=== PATIENT | male | born 1955 | race Hispanic/Latino ===

== ENCOUNTER 2018-05-04 19:47 | Inpatient (IN) | payer SELFPAY ==
[2018-05-04] MEDS ORDERED: LASIX ONE (19:54)
[2018-05-04] MEDS ORDERED: LASIX IV ONE (19:55)
[2018-05-04] MEDS ORDERED: NITRO-BID 2% TP ONE (20:01)
--- NOTE | 2018-05-04 20:10 | Emergency Department Report ---
HPI - General Chief Complaint: Dyspnea/Respdistress Time Seen by Provider: 05/04/18 20:00 - [facility] HPI: The patient is a 62-year-old male who presents to the ED complaining of presents to the ED with chest pain chest pain, that began this morning while at rest. Symptoms have been constant since onset and he rates them as severe in severity. Patient reports the symptoms are located right and left chest and describes the quality as pressure. Per patient, he has had associated shortness of breath but denies any fever, chills or night sweats. Symptoms are improved with nothing and exacerbated by movement, activity. Patient reports history of CAD history of similar symptoms. Pertinent medical history includes hypertension, CAD. Patient was hypoxic in EMS, he received DuoNeb treatments, morphine 4 mg IV, Solu-Medrol, and mag per EMS. Upon arrival in the ED patient was promptly placed on BiPAP given Lasix 100 mg IV, nitroglycerin 1 inch paste to the chest. His symptoms improved, he does not see a primary care doctor. ED Past Medical Hx - Past Medical History Hx Hypertension: Yes Hx Heart Attack/AMI: Yes - Surgical History Hx Coronary Stent: Yes - Family History Family history: CAD/MS - Social History Smoking Status: Current Every Day Smoker Substance Use Type: None ED Review of Systems ROS: Stated complaint: CODE STEMI Other details as noted in HPI Comment: All other systems reviewed and negative Cardiovascular: chest pain Endocrine: denies: increased hunger Physical Exam - Physical Exam General: - General Limitations: No Limitations General appearance: alert, in severe distress - Head Head exam: Present: atraumatic, normocephalic - Eye Eye exam: Present: normal appearance - ENT ENT exam: Present: mucous membranes moist - Neck Neck exam: Present: normal inspection - Respiratory Respiratory exam: Present: normal lung sounds bilaterally. Absent: respiratory distress - Cardiovascular Cardiovascular Exam: Present: regular rate, normal rhythm. Absent: systolic murmur, diastolic murmur, rubs, gallop - GI/Abdominal GI/Abdominal exam: Present: soft, normal bowel sounds - Extremities Exam Extremities exam: Present: normal inspection - Back Exam Back exam: Present: normal inspection - Neurological Exam Neurological exam: Present: alert, oriented X3 - Psychiatric Psychiatric exam: Present: normal affect, normal mood - Skin Skin exam: Present: warm, dry, intact, normal color. Absent: rash ED Course - Reevaluation(s) Reevaluation #1: 05/05/18 00:58 Improve with Lasix, oxygen, aspirin and nitroglycerin. ED Medical Decision Making - Lab Data Result diagrams: 05/04/18 20:20 05/04/18 20:20 Critical care attestation.: If time is entered above; I have spent that time in minutes in the direct care of this critically ill patient, excluding procedure time. ED Disposition Clinical Impression: Acute exacerbation of CHF (congestive heart failure) Qualifiers: Heart failure type: systolic Qualified Code(s): I50.23 - Acute on chronic systolic (congestive) heart failure Chest pain Qualifiers: Chest pain type: chest pain on breathing Qualified Code(s): R07.1 - Chest pain on breathing Disposition: DC-09 OP ADMIT IP TO THIS HOSP Is pt being admited?: Yes Does the pt Need Aspirin: Yes Condition: Stable Instructions: Chest Pain (ED) Referrals: PRIMARY CARE, [Primary Care Provider] - 3-5 Days
[2018-05-04 20:49] LABS: Basophils # (Auto) 0.1 K/mm3 (0.0-0.1); Basophils % (Auto) 1.1 % (0.0-1.8); Eosinophils # (Auto) 0.1 K/mm3 (0.0-0.4); Eosinophils % (Auto) 0.7 % (0.0-4.3); Hematocrit 51.1 % (35.5-45.6); Hemoglobin 17.7 gm/dl (11.8-15.2); Lymphocytes # (Auto) 1.8 K/mm3 (1.2-5.4); Lymphocytes % (Auto) 14.1 % (13.4-35.0); Mean Corpuscular HGB Conc 35 % (32-34); Mean Corpuscular Volume 99 fl (84-94); Monocytes # (Auto) 1.2 K/mm3 (0.0-0.8); Monocytes % (Auto) 9.8 % (0.0-7.3); Platelet Count 218 K/mm3 (140-440); Red Blood Count 5.19 M/mm3 (3.65-5.03)
[2018-05-04 20:55] LABS: INR 0.95 (0.87-1.13)
[2018-05-04 20:56] LABS: Partial Thromboplastin Time 23.5 Sec. (24.2-36.6)
[2018-05-04 21:06] LABS: Alanine Aminotransferase 49 units/L (7-56); Albumin 4.5 g/dL (3.9-5); BUN/Creatinine Ratio 11; Blood Urea Nitrogen 12 mg/dL (9-20); Calcium 9.3 mg/dL (8.4-10.2); Hemolysis Index 22
--- NOTE | 2018-05-04 21:23 | XRay Report ---
FINAL REPORT EXAM: XR CHEST 1V AP HISTORY: chest pain TECHNIQUE: upright single view chest PRIORS: None. FINDINGS: Cardiac and mediastinal contours are unremarkable. No focal pulmonary infiltrate is identified. No pleural fluid collection seen. Pulmonary vasculature is unremarkable. IMPRESSION: Negative single-view chest
--- NOTE | 2018-05-04 23:48 | Cat Scan Report ---
FINAL REPORT EXAM: CT ANGIO CHEST HISTORY: cp, sob r/o pe TECHNIQUE: CT chest CT angiogram with reconstructions PRIORS: None. FINDINGS: There is no evidence of filling defect within the central pulmonary vasculature to suggest the presen ce of acute pulmonary embolus. No evidence of mediastinal pathologic lymph node enlargement Heart and great vessels are unremarkable. The aorta is normal in caliber. There is some mild pleural parenchymal thickening within the right lower lobe appears slightly conflu ent could reflect an area of acute infiltrate with adjacent effusion there is some atelectasis noted inferior aspect of the right middle lobe No pleural fluid collection seen. No acute pulmonary abnormality noted. Visualized portion of the upper abdomen demonstrates no acute change. IMPRESSION: mild area of opacity and pleural thickening or fluid within the posterior inferior right lower lobe w hich may be acute or chronic No CT evidence of acute pulmonary embolus
[2018-05-05] MEDS ORDERED: ASPIRIN PO ONE (00:59)
[2018-05-05] MEDS ORDERED: MORPHINE IV PRN (01:43)
[2018-05-05] MEDS ORDERED: ZOFRAN IV PRN (01:43)
[2018-05-05] MEDS ORDERED: TYLENOL PO PRN (01:43)
--- NOTE | 2018-05-05 01:48 | History and Physical Report ---
<PHILIPP VAUGHAN - Last Filed: 05/05/18 06:20> History of Present Illness Date of examination: 05/05/18 Date of admission: 05/04/2018 Chief complaint: chest pain, SOB History of present illness: Pt is a 62 year old white male with PMHx of hypertension, CAD, CHF, hyperlipidemia, tobacco and alcohol abuse, who presents to the ER with c/o chest pain since this morning, pt reports a constant pressure-like pain located in the entire chest area side associated with SOB, palpitation, denies diaphoresis, denies any radiation, denies fever, denies chills, denies recent illness. Patient states that he recently saw his senior abap developer who was monitoring his blood pressure meds and his heart rate. Pt reports a h/o irregular heart rate for which he was taking Amioderone, and underwent a cardio convertion for VT/VF. According to EMS, pt was hypoxic, he received nebulizer treatments, IV morphine 4 mg IV, IV Solu-Medrol, and mag before some improvement in his symptoms. Pt was on placed on BiPAP on arrival, he was given IV Lasix, nitroglycerin topical for chest pain with symptoms improvement, he is being admitted for further treatment, cardiology is consulted for evaluation in the morning. Medications and Allergies Allergies Allergy/AdvReac Type Severity Reaction Status Date / Time codeine Allergy Hives Verified 05/04/18 20:00 Active Meds: Active Medications Acetaminophen (Tylenol) 650 mg PO Q4H PRN PRN Reason: Pain MILD(1-3)/Fever >100.5/ROMERO Morphine Sulfate (Morphine) 2 mg IV Q4H PRN PRN Reason: Pain, Moderate (4-6) Ondansetron HCl (Zofran) 4 mg IV Q8H PRN PRN Reason: Nausea And Vomiting Sodium Chloride (Sodium Chloride Flush Syringe 10 Ml) 10 ml IV BID ASHU Sodium Chloride (Sodium Chloride Flush Syringe 10 Ml) 10 ml IV PRN PRN PRN Reason: LINE FLUSH Exam - Constitutional Vitals: Temp Pulse Resp BP Pulse Ox 73 19 150/67 96 05/05/18 00:30 05/05/18 00:30 05/05/18 00:30 05/05/18 00:30 Results - Labs CBC & Chem 7: 05/04/18 20:20 05/04/18 20:20 Labs: Laboratory Last Values WBC 12.4 K/mm3 (4.5-11.0) H 05/04/18 20:20 RBC 5.19 M/mm3 (3.65-5.03) H 05/04/18 20:20 Hgb 17.7 gm/dl (11.8-15.2) H 05/04/18 20:20 Hct 51.1 % (35.5-45.6) H 05/04/18 20:20 MCV 99 fl (84-94) H 05/04/18 20:20 MCH 34 pg (28-32) H 05/04/18 20:20 MCHC 35 % (32-34) H 05/04/18 20:20 RDW 14.0 % (13.2-15.2) 05/04/18 20:20 Plt Count 218 K/mm3 (140-440) 05/04/18 20:20 Lymph % (Auto) 14.1 % (13.4-35.0) 05/04/18 20:20 [place] % (Auto) 9.8 % (0.0-7.3) H 05/04/18 20:20 Eos % (Auto) 0.7 % (0.0-4.3) 05/04/18 20:20 Baso % (Auto) 1.1 % (0.0-1.8) 05/04/18 20:20 Lymph # 1.8 K/mm3 (1.2-5.4) 05/04/18 20:20 [place] # 1.2 K/mm3 (0.0-0.8) H 05/04/18 20:20 Eos # 0.1 K/mm3 (0.0-0.4) 05/04/18 20:20 Baso # 0.1 K/mm3 (0.0-0.1) 05/04/18 20:20 Seg Neutrophils % 74.3 % (40.0-70.0) H 05/04/18 20:20 Seg Neutrophils # 9.2 K/mm3 (1.8-7.7) H 05/04/18 20:20 PT 13.1 Sec. (12.2-14.9) 05/04/18 20:20 INR 0.95 (0.87-1.13) 05/04/18 20:20 APTT 23.5 Sec. (24.2-36.6) L 05/04/18 20:20 POC ABG pH 7.331 (7.35-7.45) L 05/04/18 21:13 POC ABG pCO2 48.5 (35-45) H 05/04/18 21:13 POC ABG pO2 129 (80-105) H 05/04/18 21:13 POC ABG HCO3 25.7 05/04/18 21:13 POC ABG Total CO2 27 05/04/18 21:13 POC ABG O2 Sat 99 05/04/18 21:13 POC ABG Base Excess 0 05/04/18 21:13 FiO2 50 % 05/04/18 21:13 Sodium 133 mmol/L (137-145) L 05/04/18 20:20 Potassium 3.9 mmol/L (3.6-5.0) 05/04/18 20:20 Chloride 93.3 mmol/L (98-107) L 05/04/18 20:20 Carbon Dioxide 24 mmol/L (22-30) 05/04/18 20:20 Anion Gap 20 mmol/L 05/04/18 20:20 BUN 12 mg/dL (9-20) 05/04/18 20:20 Creatinine 1.1 mg/dL (0.8-1.5) 05/04/18 20:20 Estimated GFR > 60 ml/min 05/04/18 20:20 BUN/Creatinine Ratio 11 % 05/04/18 20:20 Glucose 144 mg/dL (75-100) H 05/04/18 20:20 Calcium 9.3 mg/dL (8.4-10.2) 05/04/18 20:20 Total Bilirubin 0.80 mg/dL (0.1-1.2) 05/04/18 20:20 AST 33 units/L (5-40) 05/04/18 20:20 ALT 49 units/L (7-56) 05/04/18 20:20 Alkaline Phosphatase 67 units/L (35-129) 05/04/18 20:20 Troponin T < 0.010 ng/mL (0.00-0.029) 05/04/18 21:47 NT-Pro-B Natriuret Pep 1433 pg/mL (0-900) H 05/04/18 20:20 Total Protein 7.5 g/dL (6.3-8.2) 05/04/18 20:20 Albumin 4.5 g/dL (3.9-5) 05/04/18 20:20 Albumin/Globulin Ratio 1.5 % 05/04/18 20:20 Lipase 16 units/L (13-60) 05/04/18 20:20 Assessment and Plan Assessment and plan: 1. COPD with acute exacerbation 2. Acute dyspnea 3. Chest pain r/o ACS 4. Hypoxia due to COPD/CHF 5. Acute CHF 6. Hypertension 7. Hyperlipidemia, 8. Tobacco use disorder 9. Alcohol use disorder Plan: Admit to medtele for abdominal pain and alcohol abuse Consult cardiology for evaluation Initiate CIWA protocol Continue nebulizer treatment PRN for SOB Tobacco cessation counselling O2 to keep sat > 92% Resume home meds Further plan per hospital course Plan of care was d/w pt, voiced understanding Pt's condition and plan of care discussed with Dr Jackson Advance Directives: Yes VTE prophylaxis?: Mechanical Plan of care discussed with patient/family: Yes <BRANDY JACKSON E - Last Filed: 05/05/18 07:03> History of Present Illness Date of admission: 05/05/18 01:43 Medications and Allergies Active Meds: Active Medications Acetaminophen (Tylenol) 650 mg PO Q4H PRN PRN Reason: Pain MILD(1-3)/Fever >100.5/ROMERO Albuterol (Proventil) 2.5 mg IH Q6HRT ASHU Haloperidol Lactate (Haldol) 5 mg IV Q1H PRN PRN Reason: Unrespon. to mult. doses BZD's Lorazepam (Ativan) 2 mg IV Q1H PRN PRN Reason: CIWA-Ar 8-15 Lorazepam (Ativan) 4 mg PO Q1H PRN PRN Reason: CIWA-Ar 16-25 Methylprednisolone Sodium Succinate (Solu-Medrol) 125 mg IV Q6HR ASHU Morphine Sulfate (Morphine) 2 mg IV Q4H PRN PRN Reason: Pain, Moderate (4-6) Ondansetron HCl (Zofran) 4 mg IV Q8H PRN PRN Reason: Nausea And Vomiting Sodium Chloride (Sodium Chloride Flush Syringe 10 Ml) 10 ml IV BID ASHU Sodium Chloride (Sodium Chloride Flush Syringe 10 Ml) 10 ml IV PRN PRN PRN Reason: LINE FLUSH Exam - Constitutional Vitals: Temp Pulse Resp BP Pulse Ox 97.9 F 73 20 134/78 95 05/05/18 04:00 05/05/18 04:00 05/05/18 04:00 05/05/18 04:00 05/05/18 05:45 Results - Labs CBC & Chem 7: 05/04/18 20:20 05/04/18 20:20 Labs: Laboratory Last Values WBC 12.4 K/mm3 (4.5-11.0) H 05/04/18 20:20 RBC 5.19 M/mm3 (3.65-5.03) H 05/04/18 20:20 Hgb 17.7 gm/dl (11.8-15.2) H 05/04/18 20:20 Hct 51.1 % (35.5-45.6) H 05/04/18 20:20 MCV 99 fl (84-94) H 05/04/18 20:20 MCH 34 pg (28-32) H 05/04/18 20:20 MCHC 35 % (32-34) H 05/04/18 20:20 RDW 14.0 % (13.2-15.2) 05/04/18 20:20 Plt Count 218 K/mm3 (140-440) 05/04/18 20:20 Lymph % (Auto) 14.1 % (13.4-35.0) 05/04/18 20:20 [place] % (Auto) 9.8 % (0.0-7.3) H 05/04/18 20:20 Eos % (Auto) 0.7 % (0.0-4.3) 05/04/18 20:20 Baso % (Auto) 1.1 % (0.0-1.8) 05/04/18 20:20 Lymph # 1.8 K/mm3 (1.2-5.4) 05/04/18 20:20 [place] # 1.2 K/mm3 (0.0-0.8) H 05/04/18 20:20 Eos # 0.1 K/mm3 (0.0-0.4) 05/04/18 20:20 Baso # 0.1 K/mm3 (0.0-0.1) 05/04/18 20:20 Seg Neutrophils % 74.3 % (40.0-70.0) H 05/04/18 20:20 Seg Neutrophils # 9.2 K/mm3 (1.8-7.7) H 05/04/18 20:20 PT 13.1 Sec. (12.2-14.9) 05/04/18 20:20 INR 0.95 (0.87-1.13) 05/04/18 20:20 APTT 23.5 Sec. (24.2-36.6) L 05/04/18 20:20 POC ABG pH 7.331 (7.35-7.45) L 05/04/18 21:13 POC ABG pCO2 48.5 (35-45) H 05/04/18 21:13 POC ABG pO2 129 (80-105) H 05/04/18 21:13 POC ABG HCO3 25.7 05/04/18 21:13 POC ABG Total CO2 27 05/04/18 21:13 POC ABG O2 Sat 99 05/04/18 21:13 POC ABG Base Excess 0 05/04/18 21:13 FiO2 50 % 05/04/18 21:13 Sodium 133 mmol/L (137-145) L 05/04/18 20:20 Potassium 3.9 mmol/L (3.6-5.0) 05/04/18 20:20 Chloride 93.3 mmol/L (98-107) L 05/04/18 20:20 Carbon Dioxide 24 mmol/L (22-30) 05/04/18 20:20 Anion Gap 20 mmol/L 05/04/18 20:20 BUN 12 mg/dL (9-20) 05/04/18 20:20 Creatinine 1.1 mg/dL (0.8-1.5) 05/04/18 20:20 Estimated GFR > 60 ml/min 05/04/18 20:20 BUN/Creatinine Ratio 11 % 05/04/18 20:20 Glucose 144 mg/dL (75-100) H 05/04/18 20:20 Calcium 9.3 mg/dL (8.4-10.2) 05/04/18 20:20 Total Bilirubin 0.80 mg/dL (0.1-1.2) 05/04/18 20:20 AST 33 units/L (5-40) 05/04/18 20:20 ALT 49 units/L (7-56) 05/04/18 20:20 Alkaline Phosphatase 67 units/L (35-129) 05/04/18 20:20 Troponin T < 0.010 ng/mL (0.00-0.029) 05/04/18 21:47 NT-Pro-B Natriuret Pep 1433 pg/mL (0-900) H 05/04/18 20:20 Total Protein 7.5 g/dL (6.3-8.2) 05/04/18 20:20 Albumin 4.5 g/dL (3.9-5) 05/04/18 20:20 Albumin/Globulin Ratio 1.5 % 05/04/18 20:20 Lipase 16 units/L (13-60) 05/04/18 20:20 Assessment and Plan Assessment and plan: She is a 2-year-old man with history of hypertension, hyperlipidemia, CHF, cirrhosis or liver complaints of shortness of breath worse while he was working outdoor yesterday. Also admit to chest pain. Last stress test was in 2017 [place]ota ent seen and examined with nurse practitioner. Agree with plan as discussed above, in addition, check cardiac enzymes and obtain a stress test
[2018-05-05] MEDS ORDERED: NACL 0.45% 1000 ML 1,000 ML IV SCH (06:00)
[2018-05-05] MEDS ORDERED: HALDOL IV PRN (06:16)
[2018-05-05] MEDS ORDERED: ATIVAN PO PRN (06:16)
[2018-05-05] MEDS ORDERED: ATIVAN IV PRN (06:16)
[2018-05-05] MEDS: SOLU-Medrol IV SCH ×3 (08:00→18:24)
[2018-05-05 08:27] LABS: Creatine Kinase MB 4.2 ng/mL (0.0-4.0)
[2018-05-05] MEDS: PROVENTIL IH SCH ×3 (08:59→20:15)
[2018-05-05] MEDS ORDERED: LEXISCAN IV ONE ×2 (10:10→10:11)
--- NOTE | 2018-05-05 10:46 | Consultation ---
History of Present Illness Consult date: 05/05/18 Requesting physician: ROB GONZALEZ Consult reason: shortness of breath History of present illness: This is a 62-year-old smoking history of coronary disease history approximately atrial fibrillation noncompliance hyperlipidemia hypertension who presents to the emergency room with by EMS for shortness of breath patient has chronic shortness of breath but now is having shortness of breath at rest found to be hypoxic and was given steroids and Lasix patient has cardiac cath 2017 showed nonobstructive disease with EF 4045% when elevated left end-diastolic pressure. Patient denies any chest pain nor palpitations patient has history of age fibrillation Y complex tachycardia and EP study was negative for DVT patient is on amiodarone does not take medications regularly is not on anticoagulation secondary to issues Past History Past Medical History: atrial fib (nylon" secondary to compliance), CAD, hypertension, hyperlipidemia Past Surgical History: denies: No surgical history Social history: smoking, alcohol abuse Family history: denies: no significant family history Medications and Allergies Allergies Allergy/AdvReac Type Severity Reaction Status Date / Time codeine Allergy Hives Verified 05/04/18 20:00 Active Meds: Active Medications Acetaminophen (Tylenol) 650 mg PO Q4H PRN PRN Reason: Pain MILD(1-3)/Fever >100.5/ROMERO Albuterol (Proventil) 2.5 mg IH Q6HRT ASHU Last Admin: 05/05/18 08:59 Dose: 2.5 mg Documented by: Amiodarone HCl (Cordarone) 200 mg PO QDAY ASHU Haloperidol Lactate (Haldol) 5 mg IV Q1H PRN PRN Reason: Unrespon. to mult. doses BZD's Hydralazine HCl (Apresoline) 50 mg PO Q8HR ASHU Isosorbide Mononitrate (Imdur) 30 mg PO QDAY ASHU Lorazepam (Ativan) 2 mg IV Q1H PRN PRN Reason: CIWA-Ar 8-15 Lorazepam (Ativan) 4 mg PO Q1H PRN PRN Reason: CIWA-Ar 16-25 Methylprednisolone Sodium Succinate (Solu-Medrol) 125 mg IV Q6HR [facility] Morphine Sulfate (Morphine) 2 mg IV Q4H PRN PRN Reason: Pain, Moderate (4-6) Ondansetron HCl (Zofran) 4 mg IV Q8H PRN PRN Reason: Nausea And Vomiting Sodium Chloride (Sodium Chloride Flush Syringe 10 Ml) 10 ml IV BID ASHU Sodium Chloride (Sodium Chloride Flush Syringe 10 Ml) 10 ml IV PRN PRN PRN Reason: LINE FLUSH Review of Systems All systems: negative (as per hpi) Physical Examination Vital Signs Pulse Ox 89 05/04/18 19:57 General appearance: no acute distress, well-nourished HEENT: Positive: PERRL, Mucus Membranes Moist Neck: Positive: neck supple, trachea midline Cardiac: Positive: Reg Rate and Rhythm, S1/S2. Negative: Audible Murmur Lungs: Positive: clear to auscultation, Decreased Breath Sounds Neuro: Positive: Grossly Intact Abdomen: Positive: Soft, Active Bowel Sounds. Negative: Tender, Distended Male genitourinary: Positive: normal Skin: Positive: Clear Incision: Cardiac Cath Site Musculoskeletal: No Pain, Normal Range of Motion Extremities: Present: normal. Absent: edema Results 05/04/18 20:20 05/04/18 20:20 Cardiac Enzymes 05/04/18 05/05/18 Range/Units 20:20 07:49 AST 33 (5-40) units/L CK-MB (CK-2) 4.2 H (0.0-4.0) ng/mL Coagulation 05/04/18 Range/Units 20:20 PT 13.1 (12.2-14.9) Sec. INR 0.95 (0.87-1.13) APTT 23.5 L (24.2-36.6) Sec. CBC 05/04/18 Range/Units 20:20 WBC 12.4 H (4.5-11.0) K/mm3 RBC 5.19 H (3.65-5.03) M/mm3 Hgb 17.7 H (11.8-15.2) gm/dl Hct 51.1 H (35.5-45.6) % Plt Count 218 (140-440) K/mm3 Lymph # 1.8 (1.2-5.4) K/mm3 [place] # 1.2 H (0.0-0.8) K/mm3 Eos # 0.1 (0.0-0.4) K/mm3 Baso # 0.1 (0.0-0.1) K/mm3 Comprehensive Metabolic Panel 05/04/18 Range/Units 20:20 Sodium 133 L (137-145) mmol/L Potassium 3.9 (3.6-5.0) mmol/L Chloride 93.3 L (98-107) mmol/L Carbon Dioxide 24 (22-30) mmol/L BUN 12 (9-20) mg/dL Creatinine 1.1 (0.8-1.5) mg/dL Glucose 144 H (75-100) mg/dL Calcium 9.3 (8.4-10.2) mg/dL AST 33 (5-40) units/L ALT 49 (7-56) units/L Alkaline Phosphatase 67 (35-129) units/L Total Protein 7.5 (6.3-8.2) g/dL Albumin 4.5 (3.9-5) g/dL - Imaging and Cardiology Echo: report reviewed (10/2016 EF 40-45%) Cardiac cath: report reviewed (2016 [id number] nonobstructive: EF 40-45% with elevated leftblood pressure) EKG interpretations - Telemetry EKG Rhythm: Sinus Bradycardia (left bundle-branch block) Assessment and Plan Acute on chronic respiratory failure Acute on chronic diastolic and systolic heart failure Noncompliant Coronary disease Hypertension a fibrillation proximal Hyperlipidemia Recommend patient cannot take NAZARIO inhibitor secondary to cough and not on beta ashlee secondary bradycardia continue amiodarone aspirin and statin Y hydralazine and Imdur for BP control and follow-up repeat echocardiogram and stress test
[2018-05-05] MEDS ORDERED: SOLU-Medrol IV SCH ×2 (12:00→14:00)
--- NOTE | 2018-05-05 13:44 | Treadmill Report ---
NUCLEAR STUDY REASON FOR STUDY: Shortness of breath. IMAGING PROTOCOL: The patient received 10 mCi of Technetium 99m Tetrofosmin for resting image and 28 mCi of Technetium 99m Tetrofosmin for stress imaging. The imaging for the whole procedure was completed 30-90 minutes following the initial injection of Technetium 99m Tetrofosmin. The SPECT imaging in the 180 degree arc was performed in the right anterior oblique projection. Computerized reconstruction of the images was performed for analysis. IMAGING RESULTS: Cavity is mildly dilated stress and rest. Normal distribution of radionuclide in the anterior, inferior, septal, and apical regions. Gated SPECT, EF 49% with mild global hypokinesis. The patient infused Lexiscan with no EKG changes. SUMMARY: 1. Negative Lexiscan EKG. 2. Normal rest and stress myocardial perfusion scan. Mild LV dilatation. Gated SPECT, EF 49%. JOB# [id number] KEMI/BECKA
[2018-05-05 13:47] LABS: Hemoglobin 17.9 gm/dl (11.8-15.2); Mean Corpuscular HGB Conc 34 % (32-34); Mean Corpuscular Volume 99 fl (84-94); Platelet Count 185 K/mm3 (140-440); Red Blood Count 5.36 M/mm3 (3.65-5.03); Red Cell Distribution Width 14.3 % (13.2-15.2)
[2018-05-05] MEDS ORDERED: APRESOLINE PO SCH (14:00)
[2018-05-05] MEDS: LASIX PO SCH (16:49)
[2018-05-05] MEDS: CORDARONE PO SCH (16:50)
[2018-05-05] MEDS: IMDUR PO SCH (16:50)
[2018-05-05] MEDS: COZAAR PO SCH (16:51)
[2018-05-05] MEDS: SODIUM CHLORIDE FLUSH SYRINGE 10 ML IV SCH ×2 (16:52→21:32)
--- NOTE | 2018-05-05 17:15 | Progress Note ---
Assessment and Plan 1. Chest pain r/o ACS 2. Paroxysmal Atrial fib, not on AC for noncompliance 3. COPD with acute exacerbation 4. Hypoxia due to COPD/CHF 5. acute on chronic CHF exacerbation 6. Hypertension, acccelerated 7. Hyperlipidemia, 8. Tobacco use disorder 9. Alcohol use disorder Plan: s/p stress test showed no reversible ischemia Consulted cardiology for evaluation Initiated CIWA protocol Continue nebulizer treatment PRN for SOB Tobacco cessation counselling O2 to keep sat > 92% Resumed home meds optimize BP meds possible d/c tomorrow Subjective Date of service: 05/05/18 Interval history: Patient seen and examined denies any chest pain, no SOB BP remained high, updated at bedside Objective - Constitutional Vitals: Vital Signs - 12hr 05/05/18 05/05/18 05/05/18 05:45 06:08 08:25 Temperature 97.9 F Pulse Rate 56 L 70 Pulse Rate [ Anterior Bilateral Throughout] Respiratory 20 Rate Respiratory Rate [Anterior Bilateral Throughout] Blood Pressure 177/81 O2 Sat by Pulse 95 91 Oximetry 05/05/18 05/05/18 05/05/18 08:59 09:09 10:18 Temperature Pulse Rate 69 Pulse Rate [ 69 72 Anterior Bilateral Throughout] Respiratory Rate Respiratory 18 18 Rate [Anterior Bilateral Throughout] Blood Pressure 175/86 O2 Sat by Pulse Oximetry 05/05/18 05/05/18 05/05/18 10:19 10:20 10:21 Temperature Pulse Rate 68 78 81 Pulse Rate [ Anterior Bilateral Throughout] Respiratory Rate Respiratory Rate [Anterior Bilateral Throughout] Blood Pressure 176/73 179/69 180/73 O2 Sat by Pulse Oximetry 05/05/18 05/05/18 05/05/18 10:22 10:23 13:32 Temperature 98.0 F Pulse Rate 78 79 65 Pulse Rate [ Anterior Bilateral Throughout] Respiratory 20 Rate Respiratory Rate [Anterior Bilateral Throughout] Blood Pressure 179/85 180/79 159/62 O2 Sat by Pulse 90 Oximetry 05/05/18 05/05/18 05/05/18 14:00 14:10 16:29 Temperature 98.1 F Pulse Rate 74 74 Pulse Rate [ 87 89 Anterior Bilateral Throughout] Respiratory 20 Rate Respiratory 23 22 Rate [Anterior Bilateral Throughout] Blood Pressure 142/58 O2 Sat by Pulse 87 Oximetry 05/05/18 05/05/18 05/05/18 16:50 16:51 16:59 Temperature Pulse Rate 74 74 Pulse Rate [ Anterior Bilateral Throughout] Respiratory 20 Rate Respiratory Rate [Anterior Bilateral Throughout] Blood Pressure 148/54 148/58 O2 Sat by Pulse Oximetry General appearance: Present: no acute distress, obese - EENT Eyes: PERRL, EOM intact ENT: hearing intact, clear oral mucosa Ears: bilateral: normal - Neck Neck: supple, normal ROM - Respiratory Respiratory effort: normal Respiratory: bilateral: CTA - Cardiovascular Rhythm: regular Heart Sounds: Present: S1 & S2. Absent: gallop, rub Extremities: pulses intact, No edema, normal color, Full ROM - Gastrointestinal General gastrointestinal: Present: soft, non-tender, non-distended, normal bowel sounds - Genitourinary Male genitourinary: normal - Integumentary Integumentary: clear, warm, dry - Musculoskeletal Musculoskeletal: 1, strength equal bilaterally - Neurologic Neurologic: moves all extremities - Psychiatric Psychiatric: memory intact, appropriate mood/affect, intact judgment & insight - Labs CBC & Chem 7: 05/05/18 13:17 05/04/18 20:20 Labs: Abnormal lab results 05/04/18 05/04/18 05/04/18 Range/Units 20:20 20:20 20:20 WBC 12.4 H (4.5-11.0) K/mm3 RBC 5.19 H (3.65-5.03) M/mm3 Hgb 17.7 H (11.8-15.2) gm/dl Hct 51.1 H (35.5-45.6) % MCV 99 H (84-94) fl MCH 34 H (28-32) pg MCHC 35 H (32-34) % [place] % (Auto) 9.8 H (0.0-7.3) % [place] # 1.2 H (0.0-0.8) K/mm3 Seg Neutrophils % 74.3 H (40.0-70.0) % Seg Neutrophils # 9.2 H (1.8-7.7) K/mm3 APTT 23.5 L (24.2-36.6) Sec. POC ABG pH (7.35-7.45) POC ABG pCO2 (35-45) POC ABG pO2 (80-105) Sodium 133 L (137-145) mmol/L Chloride 93.3 L (98-107) mmol/L Glucose 144 H (75-100) mg/dL Total Creatine Kinase (55-170) units/L CK-MB (CK-2) (0.0-4.0) ng/mL NT-Pro-B Natriuret Pep 1433 H (0-900) pg/mL 05/04/18 05/05/18 05/05/18 Range/Units 21:13 07:49 13:17 WBC (4.5-11.0) K/mm3 RBC 5.36 H (3.65-5.03) M/mm3 Hgb 17.9 H (11.8-15.2) gm/dl Hct 53.0 H (35.5-45.6) % MCV 99 H (84-94) fl MCH 33 H (28-32) pg MCHC (32-34) % [place] % (Auto) (0.0-7.3) % [place] # (0.0-0.8) K/mm3 Seg Neutrophils % (40.0-70.0) % Seg Neutrophils # (1.8-7.7) K/mm3 APTT (24.2-36.6) Sec. POC ABG pH 7.331 L (7.35-7.45) POC ABG pCO2 48.5 H (35-45) POC ABG pO2 129 H (80-105) Sodium (137-145) mmol/L Chloride (98-107) mmol/L Glucose (75-100) mg/dL Total Creatine Kinase 227 H (55-170) units/L CK-MB (CK-2) 4.2 H (0.0-4.0) ng/mL NT-Pro-B Natriuret Pep (0-900) pg/mL
[2018-05-05] MEDS: HABITROL TD SCH (20:25)
[2018-05-05] MEDS ORDERED: CORDARONE PO SCH (22:00)
[2018-05-06] MEDS: SOLU-Medrol IV SCH ×3 (01:01→12:00)
[2018-05-06] MEDS: SODIUM CHLORIDE FLUSH SYRINGE 10 ML IV PRN ×2 (01:02→05:52)
[2018-05-06] MEDS: PROVENTIL IH SCH ×3 (01:40→15:57)
[2018-05-06] MEDS: COZAAR PO SCH (11:01)
[2018-05-06] MEDS: CORDARONE PO SCH (11:03)
[2018-05-06] MEDS: IMDUR PO SCH (11:03)
[2018-05-06] MEDS: LASIX PO SCH (11:03)
[2018-05-06] MEDS: SODIUM CHLORIDE FLUSH SYRINGE 10 ML IV SCH (11:04)
[2018-05-06] MEDS: HABITROL TD SCH (11:11)
--- NOTE | 2018-05-06 14:36 | Progress Note ---
Assessment and Plan This is a 62-year-old smoking history of coronary disease history approximately atrial fibrillation noncompliance hyperlipidemia hypertension who presents to the emergency room with by EMS for shortness of breath patient has chronic shortness of breath but now is having shortness of breath at rest found to be hypoxic and was given steroids and Lasix patient has cardiac cath 2017 showed nonobstructive disease with EF 4045% when elevated left end-diastolic pressure. Patient denies any chest pain nor palpitations patient has history of age fibrillation Y complex tachycardia and EP study was negative for DVT patient is on amiodarone does not take medications regularly is not on anticoagulation secondary to issues 05/06/2018>Echo was unremarkable,no evidence of ischemia on iv Lexiscan MPI. May d/c home on present medical therapy and f/u with . Subjective Date of service: 05/06/18 Interval history: Patient wants to go home,denies any chest pain. Objective Vital Signs Temp Pulse Pulse Resp Resp BP Pulse Ox 05/06/18 13:00 68 05/06/18 11:26 78 20 174/78 93 05/06/18 11:25 98.1 F 05/06/18 11:03 78 136/52 05/06/18 11:01 78 136/56 05/06/18 10:45 69 20 05/06/18 10:34 73 18 95 05/06/18 10:00 18 05/06/18 08:11 97.5 F L 05/06/18 08:09 65 20 131/54 91 05/06/18 05:00 58 L 05/06/18 04:18 97.8 F 62 20 114/38 90 05/06/18 01:52 88 18 05/06/18 01:40 89 18 05/05/18 23:34 98.2 F 67 20 110/60 90 05/05/18 20:37 93 05/05/18 20:27 88 18 05/05/18 20:25 98.2 F 68 20 138/63 90 05/05/18 20:15 84 20 05/05/18 20:00 75 05/05/18 16:59 20 05/05/18 16:51 74 148/58 05/05/18 16:50 74 148/54 05/05/18 16:29 98.1 F 74 20 142/58 87 - Physical Examination HEENT: Positive: PERRL, Mucus Membranes Moist Neck: Positive: neck supple, trachea midline Cardiac: Positive: Regular Rate Lungs: Positive: Decreased Breath Sounds Neuro: Positive: Grossly Intact Abdomen: Positive: Soft, Active Bowel Sounds. Negative: Tender, Distended Skin: Positive: Clear Incision: Cardiac Cath Site Musculoskeletal: No Pain, Normal Range of Motion Extremities: Present: normal. Absent: edema - Imaging and Cardiology Echo: report reviewed (10/2016 EF 40-45%) Cardiac cath: report reviewed (2016 [id number] nonobstructive: EF 40-45% with elevated leftblood pressure) - Telemetry EKG Rhythm: Sinus Rhythm
--- NOTE | 2018-05-06 15:34 | Discharge Summary ---
Providers - Providers Date of Admission: 05/05/18 01:43 Date of discharge: 05/06/18 Attending physician: ROB GONZALEZ 05/05/18 01:09 Consult to Physician [CONS] Routine Comment: Dr. Quezada spoke with Dr. Mann @ 0042 Consulting Provider: SAM MANN Physician Instructions: Reason For Exam: chest pain Primary care physician: [employer] Hospitalization Condition: Stable Pertinent studies: CXR CTA 2d echo MPI stress test Hospital course: This is a 62-year-old with h/o smoking, coronary artery disease, atrial fibrillation, noncompliance, hyperlipidemia, hypertension who presented to the emergency room with by EMS for shortness of breath and chest pain. Patient had cardiac cath 2017 showed nonobstructive disease with EF 40-45%. Cardiology was consulted following admission, patient was further evaluated by MPI stress test and that was normal. Cardiology recommended medical management and was discharged home in stable condition. He was also counseled for tobacco and alcohol cessation. Discharge diagnosis: 1. Chest pain, ruled out ACS with normal stress test 2. Paroxysmal Atrial fib, not on AC for noncompliance 3. COPD with acute exacerbation, improved 4. Hypoxia due to COPD/CHF, stable 5. acute on chronic CHF exacerbation, stable 6. Hypertension, acccelerated, improved 7. Hyperlipidemia, 8. Tobacco use disorder 9. Alcohol use disorder Disposition: DC-01 TO HOME OR SELFCARE Time spent for discharge: 34 minutes Core Measure Documentation - Palliative Care Palliative Care/ Comfort Measures: Not Applicable - Core Measures Any of the following diagnoses?: heart failure, history only - Heart Failure Discharge Requirements NAZARIO/ARB for LVSD if EF <40%: Yes Beta ashlee at discharge: No Reason for no beta ashlee on DC: Bradycardia Exam - Physical Exam Narrative exam: General appearance: Present: no acute distress, obese - EENT Eyes: PERRL, EOM intact ENT: hearing intact, clear oral mucosa Ears: bilateral: normal - Neck Neck: supple, normal ROM - Respiratory Respiratory effort: normal Respiratory: bilateral: CTA - Cardiovascular Rhythm: regular Heart Sounds: Present: S1 & S2. Absent: gallop, rub Extremities: pulses intact, No edema, normal color, Full ROM - Gastrointestinal General gastrointestinal: Present: soft, non-tender, non-distended, normal bowel sounds - Genitourinary Male genitourinary: normal - Integumentary Integumentary: clear, warm, dry - Musculoskeletal Musculoskeletal: 1, strength equal bilaterally - Neurologic Neurologic: moves all extremities - Psychiatric Psychiatric: memory intact, appropriate mood/affect, intact judgment & insight - Constitutional Vitals: Temp Pulse Resp BP Pulse Ox 98.1 F 68 20 174/78 93 05/06/18 11:25 05/06/18 13:00 05/06/18 11:26 05/06/18 11:26 05/06/18 11:26 Plan Activity: advance as tolerated Weight Bearing Status: Non-Weight Bearing Diet: low fat, low salt Special Instructions: restrict fluid intake to (1.5 L), record daily weights, record daily BP diary Follow up with: PRIMARY CARE, [Primary Care Provider] - 3-5 Days HUGO WELLS MD [Staff Physician] - 7 Days Prescriptions: Furosemide [Lasix TAB] 20 mg PO QDAY #30 tablet ISOSORBIDE MONOnitrate [Imdur ER] 30 mg PO QDAY #30 tablet Losartan [Cozaar] 50 mg PO QDAY #30 tablet
[2018-05-06 16:55] VITALS: BP 142/74
== END 2018-05-06 17:43 | disposition home or self-care (01) | DRG 291 ==
LOC: ED 19:47 → 4A 05-05 01:43
PROVIDERS: ADMIT Internal Medicine; ATTEND Internal Medicine
PROC: 5A09357 Assistance with Respiratory Ventilation, Less than 24 Consecutive Hours, Continuous Positive Airway Pressure (ICD-10-PCS; principal; 2018-05-04)
PROC: 4A033R1 Measurement of Arterial Saturation, Peripheral, Percutaneous Approach (ICD-10-PCS; 2018-05-04)
DX: I11.0 Hypertensive heart disease with heart failure (principal); J96.21 Acute and chronic respiratory failure with hypoxia; J44.1 Chronic obstructive pulmonary disease with (acute) exacerbation; I50.23 Acute on chronic systolic (congestive) heart failure; E78.5 Hyperlipidemia, unspecified; F17.200 Nicotine dependence, unspecified, uncomplicated; K74.60 Unspecified cirrhosis of liver; I48.0 Paroxysmal atrial fibrillation; F10.10 Alcohol abuse, uncomplicated; Y90.0 Blood alcohol level of less than 20 mg/100 ml; Z88.5 Allergy status to narcotic agent; Z79.899 Other long term (current) drug therapy; Z91.19 Patient's noncompliance with other medical treatment and regimen; I25.2 Old myocardial infarction; Z82.49 Family history of ischemic heart disease and other diseases of the circulatory system
CPT/HCPCS: 36415; 71045; 71275; 78452; 80053; 82550; 82553; 82803; 83690; 83880; 84484; 85025; 85027; 85610; 85730; 93005; 93010; 93017; 93306; 94640; 94760; 96374; G0378; A9502; J1940; J2785; J2930; Q9967